=== PATIENT | female | born 2000 | race Caucasian/White ===

== ENCOUNTER → 2020-01-01 | Outpatient (CLI) | payer OTHER ==
[2020-01-01 12:46] LABS: ABSOLUTE EOSINOPHILS 0.1 thou/uL (0.0-0.7); ABSOLUTE MONOCYTES 0.7 thou/uL (0.0-1.2); BASOPHILS 0.3 %; EOSINOPHILS 1.3 %; HEMATOCRIT 42.8 % (37.0-47.0); HEMOGLOBIN 14.9 gm/dL (12.0-15.0); LYMPHOCYTES 22.4 %; MCH 30.7 pg (26.0-34.0); MCHC 34.8 g/dL (28.0-37.0); MCV 88.3 fL (80.0-100.0); MONOCYTES 7.7 %; MPV 8.8 fl. (7.2-11.1); NUCLEATED RBCS 0 /100WBC; PLATELET COUNT* 264 thou/uL (150-400); POLYS 68.3 %; RBC 4.85 mil/uL (4.20-5.00); RDW-CV 13.3 % (10.5-14.5); WBC 8.7 thou/uL (4.0-11.0)
[2020-01-01 12:57] LABS: ALKALINE PHOSPHATASE 78 U/L (46-116); ANION GAP 6 mmol/L (7-16); BUN 10 mg/dL (7-18); CHLORIDE 104 mmol/L (98-107); CHOLESTEROL 168 mg/dL (<170); CO2 31 mmol/L (21-32); CREATININE 0.8 mg/dL (0.6-1.3); GLUCOSE 83 mg/dL (70-99); HDL CHOLESTEROL 51 mg/dL (>40); LDL CHOLESTEROL 104 mg/dL (<110); POTASSIUM 3.8 mmol/L (3.5-5.1); SGOT 18 U/L (15-37); SGPT 24 U/L (30-65); SODIUM 141 mmol/L (136-145); TC:HDL 3.3 Ratio (Not establshd); TOTAL BILIRUBIN 0.5 mg/dL (<0.1-1.0); TOTAL PROTEIN 7.9 g/dL (6.4-8.2); TRIGLYCERIDE 67 mg/dL (<150); VLDL 13 mg/dL (<40)
[2020-01-01 12:58] LABS: SERUM ASSESSMENT Clear
== END ==
LOC: M.LAB 12:02
PROVIDERS: Family Medicine
DX: R10.9 Unspecified abdominal pain (principal); F31.9 Bipolar disorder, unspecified; R07.9 Chest pain, unspecified

== ENCOUNTER → 2020-01-05 | Outpatient (CLI) | payer OTHER | LOC: M.ULTRA 08:00 | DX: R10.84 Generalized abdominal pain (principal) ==

== ENCOUNTER → 2020-01-23 | Outpatient (CLI) | payer OTHER ==
--- NOTE | 2020-01-23 15:31 | EKG ---
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
== END ==
LOC: M.CT 13:14
PROVIDERS: ATTEND Family Medicine
DX: R74.8 Abnormal levels of other serum enzymes (principal); R10.84 Generalized abdominal pain; R06.02 Shortness of breath

== ENCOUNTER 2020-11-17 10:43 | Emergency (ER) | payer OTHER ==
[~2020-11-17] VITALS: Ht 157.5 cm; Wt 94.3 kg
[2020-11-17] MEDS ORDERED: DEPO-PROVE150 MG/11 IM (11:06)
[2020-11-17 11:21] LABS: URINE BLOOD 3+ (Negative); URINE CLARITY CLEAR; URINE COLOR YELLOW; URINE GLUCOSE-RANDOM NEGATIVE (Negative); URINE KETONES TRACE (Negative); URINE LEUKOCYTES-REFLEX TRACE (Negative); URINE NITRITE-REFLEX NEGATIVE (Negative); URINE PROTEIN TRACE (Negative); URINE SPECIFIC GRAVITY 1.025 (1.005-1.030); URINE UROBILINOGEN 0.2 E.U./dl (0.2-1.0)
[2020-11-17 11:23] LABS: URINE BILIRUBIN 1+ (Negative)
[2020-11-17 11:24] LABS: ICTOTEST (BILI CONFIRMATORY) ND (Negative)
[2020-11-17 11:26] LABS: BACTERIA-REFLEX 1-9 Few /HPF (None Seen); CASTS None Seen /LPF (None Seen); CRYSTALS None Seen /LPF (None Seen); MUCUS None Seen strn/LPF (None Seen); SQUAMOUS 4-10 Moderate /LPF (0-3); URINE RBC 3-10 Few /HPF (0-2); URINE WBC-REFLEX 0-5 Rare /HPF (0-5)
[2020-11-17 11:39] LABS: ABSOLUTE EOSINOPHILS 0.1 thou/uL (0.0-0.7); ABSOLUTE LYMPHOCYTES 1.7 thou/uL (0.8-5.3); ABSOLUTE MONOCYTES 0.6 thou/uL (0.0-1.2); ABSOLUTE NEUTROPHILS 7.3 thou/uL (1.6-8.1); BASOPHILS 0.4 %; EOSINOPHILS 1.2 %; HEMATOCRIT 45.3 % (37.0-47.0); HEMOGLOBIN 15.4 gm/dL (12.0-15.0); LYMPHOCYTES 17.4 %; MCH 29.3 pg (26.0-34.0); MCV 86.2 fL (80.0-100.0); MONOCYTES 6.3 %; MPV 8.5 fl. (7.2-11.1); NUCLEATED RBCS 0 /100WBC; PLATELET COUNT* 267 thou/uL (150-400); POLYS 74.7 %; RBC 5.25 mil/uL (4.20-5.00); WBC 9.7 thou/uL (4.0-11.0)
[2020-11-17 11:50] LABS: CALCIUM 9.5 mg/dL (8.5-10.1); POTASSIUM 3.5 mmol/L (3.5-5.1)
[2020-11-17 11:54] LABS: ALBUMIN 4.3 g/dL (3.4-5.0); TOTAL BILIRUBIN 0.7 mg/dL (<0.1-1.0); TOTAL PROTEIN 8.3 g/dL (6.4-8.2)
[2020-11-17] MEDS ORDERED: OMEPRAZOLE 20 M20 M1 PO (12:48)
[2020-11-17] MEDS ORDERED: ONDANSETRON HCL4 M2 PO (12:48)
[2020-11-17] MEDS ORDERED: CARAFATE1 GM/10 ML PO (12:48)
[2020-11-17 12:57] VITALS: BP 141/89
--- NOTE | 2020-11-17 15:37 | EKG ---
[place] [address] ELECTROCARDIOGRAM REPORT Name: FREEDOM RAM Room: [facility]#: [id number] Admission: 11/17/20 Attend Phys: Discharge: 11/17/20 Date of : 00 Date of Service: 11/17/20 1137 Report #: [id number] THIS REPORT FOR: //name// 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[facility] : 2000 Requested By: Deanne Che Order Number: [id number] MD: Dustin Robles Measurements Intervals [place] Rate: 82 P: 31 KS: 123 QRS: 37 QRSD: 78 T: 34 QT: 350 QTc: 409 Interpretive Statements Sinus rhythm Compared to ECG 01/23/2020 14:25:39 No significant changes Electronically Signed On 11-17-2020 15:37:36 ASSEMBLY OPERATOR by Dustin Robles [email or web address] <ELECTRONICALLY SIGNED> By: Dustin Robles MD, [facility] 11/17/20 1537 1137 113 Dustin Robles MD, [facility] /EPI
== END 2020-11-17 12:57 | disposition home or self-care (01) ==
LOC: M.ERS 10:43
PROVIDERS: Nurse Practitioner Family
DX: R10.13 Epigastric pain (principal); Z88.0 Allergy status to penicillin

== ENCOUNTER → 2021-02-02 | Outpatient (CLI) | payer OTHER ==
[~2021-02-02] MED LIST: CARAFATE1 GM/10 ML PO; DEPO-PROVE150 MG/11 IM; OMEPRAZOLE 20 M20 M1 PO; ONDANSETRON HCL4 M2 PO
== END ==
LOC: M.LAB 16:03
PROVIDERS: ATTEND Internal Medicine Gastroenterology
DX: R10.9 Unspecified abdominal pain (principal); R10.13 Epigastric pain; Z20.822 Contact with and (suspected) exposure to COVID-19

== ENCOUNTER 2021-11-10 12:18 | Emergency (ER) | payer OTHER ==
[~2021-11-10] VITALS: Ht 157.5 cm; Wt 93.0 kg
[2021-11-10 15:06] LABS: HEMATOCRIT 46.5 % (37.0-47.0); HEMOGLOBIN 15.9 gm/dL (12.0-15.0); MCH 29.4 pg (26.0-34.0); MCHC 34.3 g/dL (28.0-37.0); MCV 85.8 fL (80.0-100.0); MPV 8.6 fl. (7.2-11.1); RBC 5.42 mil/uL (4.20-5.00); RDW-CV 13.6 % (10.5-14.5); WBC 12.8 thou/uL (4.0-11.0)
[2021-11-10 15:15] LABS: CALCIUM 9.5 mg/dL (8.5-10.1); CREATININE 0.9 mg/dL (0.6-1.3); POTASSIUM 4.4 mmol/L (3.5-5.1)
[2021-11-10 15:20] LABS: ALBUMIN 4.4 g/dL (3.4-5.0); TOTAL BILIRUBIN 0.6 mg/dL (<0.1-1.0); TOTAL PROTEIN 8.2 g/dL (6.4-8.2)
--- NOTE | 2021-11-10 16:17 | EKG ---
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
[2021-11-10] MEDS ORDERED: PROAIR HFA8.5 GM INH (16:44)
[2021-11-10] MEDS ORDERED: MEDROLDOSEPACK PO (16:44)
[2021-11-10] MEDS ORDERED: VISTARIL 25 MG25 M1 PO (16:44)
[2021-11-10 16:50] VITALS: BP 142/97
== END 2021-11-10 16:50 | disposition home or self-care (01) ==
LOC: M.ERS 12:18
PROVIDERS: Physician Assistant
DX: R06.02 Shortness of breath (principal); Z20.822 Contact with and (suspected) exposure to COVID-19; Z79.899 Other long term (current) drug therapy; Z88.0 Allergy status to penicillin